=== PATIENT | female | born 1985 | race Caucasian/White ===

== ENCOUNTER 2016-12-21 20:34 | Inpatient (IN) | payer SELFPAY ==
[~2016-12-21] VITALS: Ht 165.1 cm; Wt 61.2 kg
--- NOTE | ~2016-12-21 | PN ---
Unit #: [id number] #: [id number] Patient: EFRAIN SAHU [id number] [facility] [address] [place] [address] [id number] I MR#: [id number] NAME: EFRAIN SAHU ROOM: [facility] Age: 31 Sex: F Admission Date: 12/21/2016 : 1985 Attending Physician: Dilia Prescott M.D. Admitting Physician: Dilia Prescott M.D. Primary Care Physician: Generic Doctor Not In System [facility] PROGRESS NOTES DATE December 24, 2016 DISCUSSION Ms. Sahu is a 31-year-old white female, with substance abuse and mood disorder, who was seen today and chart was reviewed and the case was discussed with the staff. She has been doing fairly well and has been showing improvement in her mood and functioning and has been wanting to be able to go home tomorrow. Meanwhile, she has been willing to continue treatment on an outpatient basis. MENTAL STATUS EXAMINATION Young white female, who was casually dressed with fair personal hygiene and appears to be in no acute distress or discomfort. The patient was awake and alert on interaction with intact orientation. Her mood was anxious with a congruent affect. The patient denies any suicidal or homicidal ideations. Her insight and judgment remain slightly impaired. TREATMENT PLAN 1. We will continue her on her current medications and treatment protocol, and will monitor her response to the medications, and make further adjustments as needed. 2. We will continue to followup. Dictated by... Yevgeniy Garner/brit TD: 12/25/2016 12:45 JOB #: [id number] Unit #: [id number] #: [id number] Patient: EFRAIN SAHU PROGRESS NOTES Page 1 of 1 X Dilia Prescott MD PROGRESS NOTE
--- NOTE | ~2016-12-21 | DS ---
Unit #: [id number] #: [id number] Patient: EFRAIN SAHU [id number] [facility] [address] [place] [address] [id number] I MR#: [id number] NAME: EFRAIN SAHU ROOM: [facility] Age: 31 Sex: F Admission Date: 12/21/2016 : 1985 Discharge Date: 12/25/2016 Attending Physician: Dilia Prescott M.D. Primary Care Physician: Generic Doctor Not In System DISCHARGE SUMMARY IDENTIFYING DATA Ms. Sahu is a 31-year-old, white female with history of substance abuse and mood disorder, who was self-referred to the program. DISCHARGE DIAGNOSES Psychiatric: Major depressive disorder, recurrent, moderate, without psychotic features; methamphetamine dependence, moderate. Medical: None. Stressors: Moderate psychosocial stressors. HISTORY OF PRESENT ILLNESS Please see initial psychiatric evaluation for details. PAST PSYCHIATRIC HISTORY Please see initial psychiatric evaluation for details. PAST MEDICAL HISTORY Please see initial psychiatric evaluation for details. HOSPITAL COURSE The patient was admitted to the adult chemical dependency unit at [facility] preeti Jaime and was oriented to the hospital environment. Routine p.r.n. medications were initiated, and she was started on opioid detox protocol, and was also started on Wellbutrin and BuSpar to help with depression and anxiety, and was closely monitored. She was taking medications regularly and was tolerating them fairly well and was able to show a decent and therapeutic response with improvement in depression and anxiety and as such, it was decided that she will be kept on her current medications and will be discharged home and will continue treatment on outpatient basis. DISCHARGE MEDICATIONS None. DISCHARGE CONDITION Stable. PROGNOSIS Fair. Dictated by... Dilia Prescott M.D. IAA/modl Unit #: [id number] #: [id number] Patient: EFRAIN SAHU TD: 01/03/2017 12:46 JOB #: [id number] DISCHARGE SUMMARY Page 1 of 1 X Dilia Prescott MD DISCHARGE SUMMARY
--- NOTE | ~2016-12-21 | HP ---
Unit #: [id number] #: [id number] Patient: ANGELA SAHU [id number] [place] [address] [id number] MR#: [id number] NAME: ANGELA SAHU ROOM: [facility] Age: 31 Sex: F Admission Date: 12/21/2016 : 1985 Attending Physician: Dilia Prescott M.D. Admitting Physician: Dilia Prescott M.D. Primary Care Physician: Generic Doctor Not In System HISTORY AND PHYSICAL HISTORY OF PRESENT ILLNESS Angela is a 31 year old admitted to [facility] because of her illicit substance abuse which includes IV heroin and methamphetamine. PAST MEDICAL HISTORY Long history of illicit substance abuse to include IV drugs. PAST SURGICAL HISTORY Tubal ligation. ALLERGIES No known drug allergies. SOCIAL HISTORY Smokes 1 pack per day. Denies alcohol. Admits to a long history of illicit substance abuse to include IV drugs. FAMILY HISTORY Medically noncontributory. REVIEW OF SYSTEMS CONSTITUTIONAL: No fever or chills. HEENT: Denies any sore throat, ear pain or runny nose. CARDIOVASCULAR: Denies chest pain, irregular heart rhythm or palpitations. CHEST: Denies shortness of breath or cough. No hemoptysis. GASTROINTESTINAL: Denies nausea, vomiting, diarrhea or chronic constipation. ENDOCRINE: Denies history of increased thirst or urination. No recent significant weight loss or gain. GENITOURINARY: Denies dysuria, frequency, or hematuria. SKIN: Denies any rashes. HEMATOLOGIC: Denies history of increased bleeding or bruising. MUSCULOSKELETAL: Denies any hot, swollen joints. No generalized muscle pain. NEUROLOGIC: Denies problems with vision or speech. No frequent, severe headaches. No numbness, tingling or weakness in any extremities. Denies loss of bladder or bowel control. CURRENT MEDICATIONS 1. BuSpar 10 mg b.i.d. 2. Wellbutrin XL 150 mg q.a.m. 3. Nicotine patch 14 mg daily. 4. Desyrel p.r.n. Unit #: [id number] #: [id number] Patient: ANGELA SAHU 5. Milk of Magnesia p.r.n. 6. Maalox p.r.n. 7. Tylenol p.r.n. PHYSICAL EXAMINATION GENERAL: Alert, well-nourished, in no apparent distress. VITAL SIGNS: Blood pressure 110/70, heart rate 76, respirations 16, temperature 98.6. WEIGHT: 135. HEIGHT: 5 feet 5 inches. SKIN: Warm and dry without rash or lesion. HEENT: Normocephalic. TMs not viewed. Oral and nasal passages clear. Conjunctivae clear. PERRLA. EOMs intact. NECK: Supple without lymphadenopathy or thyromegaly. HEART: Regular rate and rhythm without murmur. LUNGS: Clear. ABDOMEN: Soft, nontender. : Not done. EXTREMITIES: No evidence of cyanosis, clubbing or edema. Moves all without focal deficit. NEUROLOGICAL: Grossly within normal limits. Cranial Nerves: II: Visual moraes are intact. III, IV AND : Extraocular movements are intact. Pupils are equal, round and reactive to light. V: Facial sensation is grossly normal. VII: Facial movements and expression are normal. VIII: Auditory acuity grossly intact. IX, X: Uvula is midline. Phonation is normal. XI: Patient shrugs shoulders and turns head normally. XII: Tongue protrudes in the midline. Sensory and Motor Function: Sensory and motor sensation is grossly normal. Motor: moves all extremities well. Coordination: Gait is normal. Deep Tendon Reflexes: Intact. IMPRESSION Psychiatric admission. RECOMMENDATIONS PSYCHIATRIC: Per psychiatrist. MEDICAL: See no contraindication to participate in facility's activities. MEDICAL PROGNOSIS Good. MEDICAL CONDITION Stable. Dictated by... Lizz Jurado P.A.-C. for Yevgeniy Wells/mary TD: 12/22/2016 20:50 JOB #: [id number] Unit #: [id number] #: [id number] Patient: ANGELA SAHU HISTORY AND PHYSICAL Page 1 of 1 X Lizz Jurado HISTORY AND PHYSICAL
--- NOTE | ~2016-12-21 | PA ---
Unit #: [id number] #: [id number] Patient: EFRAIN SAHU [id number] [facility] [address] [place] [address] [id number] MR#: [id number] NAME: EFRAIN SAHU ROOM: 75 Age: 31 Sex: F Admission Date: 12/21/2016 : 1985 Date of Assessment: 12/22/2016 Attending Physician: Dilia Prescott M.D. Admitting Physician: Dilia Prescott M.D. Primary Care Physician: Generic Doctor Not In System PSYCHIATRIC ASSESSMENT DATE OF SERVICE 12/22/2016. IDENTIFYING DATA Ms. Sahu is a 31-year-old, single, white female, who is a resident of [place], [place], and was transferred to from [facility] in [place], [place] on a voluntary basis. CHIEF COMPLAINT "Suicidal ideation and plan to cut my wrist." HISTORY OF PRESENT ILLNESS Ms. Sahu is a 31-year-old white female, who was brought to the hospital emergency room reporting suicidal ideation with plan to cut her wrist. The patient reports that she is feeling suicidal because she just lost a place to live with her mother since she uses drugs and had to turn her children over to [facility] today stating "I just feel overwhelmed and I do not want to live anymore." The patient also reports self medicating herself with IV methamphetamine 1 g with the last use a couple of days ago and has a history of IV heroin use with the last use 3 months ago. She does report increasing depression, anxiety, irritability, feelings of hopelessness and helplessness, and suicidal ideations and was seen to be a significant threat to herself and others, and as such, recommendation for inpatient level of care for safety and stabilization was made and patient was transferred to us. SUBSTANCE ABUSE HISTORY The patient reports history of IV heroin, IV methamphetamine abuse, though she reports that she has not used any IV heroin in the last one month and last use of methamphetamine was 2 days ago. PAST PSYCHIATRIC HISTORY The patient has had a history of chemical dependency treatment in [place] in the past and review of the medical records indicate that currently she is not active in any treatment program, is not seeing a psychiatrist, and not taking any psychotropic medications. PAST MEDICAL HISTORY The patient's medical history is insignificant. ALLERGIES No known medication allergies. Unit #: [id number] #: [id number] Patient: EFRAIN SAHU CURRENT MEDICATIONS None. PERSONAL AND SOCIAL HISTORY A 31-year-old white female, who reports that she is single, unemployed, and essentially homeless and her children were recently taken over by [employer] in [facility] and reports poor social support system. MENTAL STATUS EXAMINATION Young white female, who was casually dressed with fair personal hygiene, appears to be in no acute distress or discomfort. She was awake and alert on interaction with intact orientation to time, place, and person. Her mood was anxious and depressed with a congruent affect. Her speech was slow and restricted in content. She reports having suicidal ideations, but denies any homicidal ideations, and also denies any auditory or visual hallucinations. Her insight and judgment remain significantly impaired. DIAGNOSTIC IMPRESSION Psychiatric: Major depressive disorder, recurrent, moderate, without psychotic features; methamphetamine dependence, moderate; heroin dependence, moderate. Medical: None. Stressors: Moderate psychosocial stressors. TREATMENT PLAN 1. The patient has presented with a history of substance abuse and mood disorder, and has been decompensating and will need inpatient hospitalization for detoxification, safety, and stabilization. We will start her back on her home medications and we will adjust the medications and monitor response. 2. Supportive therapy was provided to the patient. 3. Safe, structured, and nourishing environment will be provided. ESTIMATED LENGTH OF STAY 4 to 5 days. ABILITY TO HELP SELF Limited. WILLINGNESS TO HELP SELF The patient appears to be willing to help self. STRENGTHS 1. Communicative. 2. Cooperative. PROBLEMS 1. Chronic dysphoric symptoms. 2. Chronic chemical dependency. 3. Poor social support system. DISCHARGE CRITERIA This will be contingent upon the patient's ability to go through detox without having any significant withdrawal symptoms as well as her ability to stay safe to herself, particularly after discharge from the hospital. Unit #: [id number] #: [id number] Patient: EFRAIN SAHU Dictated by..Yevgeniy Anton/pradeep TD: 12/22/2016 06:24 JOB #: [id number] PSYCHIATRIC ASSESSMENT Page 1 of 1 X Dilia Prescott MD PSYCHIATRIC ASSESSMENT
--- NOTE | ~2016-12-21 | PN ---
Unit #: [id number] #: [id number] Patient: EFRAIN SAHU [id number] [facility] [address] [place] [address] [id number] MR#: [id number] NAME: EFRAIN SAHU ROOM: [facility] Age: 31 Sex: F Admission Date: 12/21/2016 : 1985 Attending Physician: Dilia Prescott M.D. Admitting Physician: Dilia Prescott M.D. Primary Care Physician: Generic Doctor Not In System [facility] PROGRESS NOTES DATE 12/23/2016 DISCUSSION Ms. Sahu is a 31-year-old white female with substance abuse and mood disorder who was seen today and chart was reviewed and case was discussed with the staff. She was seen to be rather anxious, withdrawn but she reports doing much better with depressive symptoms and has been compliant with the treatment recommendations as she has been taking medications and tolerating them fairly well with no reported side effects. MENTAL STATUS EXAMINATION Young white female who was casually dressed with fair personal hygiene and appears to be in no acute distress or discomfort. She was awake and alert on interaction with intact orientation. Her mood was anxious with congruent affect. She denies any suicidal or homicidal ideations. Her insight and judgement remains slightly impaired. TREATMENT PLAN 1. Will continue on current medications and treatment protocol and will monitor her response to the medications and make further adjustments as needed. 2. Will continue to follow up. Dictated by... Yevgeniy Garner/mary TD: 12/23/2016 23:19 JOB #: [id number] Unit #: [id number] #: [id number] Patient: EFRAIN SAHU PROGRESS NOTES Page 1 of 1 X Dilia Prescott MD PROGRESS NOTE
== END 2016-12-25 08:43 | DRG 885 ==
LOC: P1E 23:55
DX: F33.1 Major depressive disorder, recurrent, moderate (principal); F11.20 Opioid dependence, uncomplicated; R45.851 Suicidal ideations; F15.20 Other stimulant dependence, uncomplicated; Z59.0 Homelessness; Z98.51 Tubal ligation status; F17.200 Nicotine dependence, unspecified, uncomplicated
CPT/HCPCS: 84703